=== PATIENT | male | born 1975 | race Two or more races ===

== ENCOUNTER 2019-08-10 07:30 | Inpatient (IN) | payer OTHER ==
[~2019-08-10] VITALS: Ht 172.7 cm; Wt 85.7 kg
[~2019-08-10 07:30] MED LIST: NABUMETONE750 MG PO
[2019-08-17] MEDS ORDERED: CEFADROXIL500 MG PO (15:51)
[2019-08-17] MEDS ORDERED: PERCOCET 5-3251 EACH PO (15:51)
[2019-08-17] MEDS ORDERED: ELIQUIS2.5 MG PO (15:51)
== END 2019-08-17 17:59 | disposition home or self-care (01) | DRG 470 ==
LOC: SURH 08-15 06:30 → O/R 08-15 06:30 → SURH 08-15 17:14 → O/R 08-15 17:30 → SURH 08-17 17:59
PROVIDERS: ADMIT Orthopaedic Surgery; ATTEND Orthopaedic Surgery
PROC: 0QU407Z Supplement Right Acetabulum with Autologous Tissue Substitute, Open Approach (ICD-10-PCS; 2019-08-15)
PROC: 0SR90J9 Replacement of Right Hip Joint with Synthetic Substitute, Cemented, Open Approach (ICD-10-PCS; principal; 2019-08-15 17:30)
DX: M16.51 Unilateral post-traumatic osteoarthritis, right hip (principal); D62 Acute posthemorrhagic anemia

== ENCOUNTER 2021-03-16 10:58 | Emergency (ER) | payer OTHER ==
[~2021-03-16] VITALS: Ht 172.7 cm; Wt 81.6 kg
[~2021-03-16 10:58] MED LIST changes: +CEFADROXIL500 MG PO; +ELIQUIS2.5 MG PO; +PERCOCET 5-3251 EACH PO
== END 2021-03-16 14:05 | disposition home or self-care (01) ==
LOC: ER 10:58
DX: B34.9 Viral infection, unspecified (principal); R07.89 Other chest pain; R31.9 Hematuria, unspecified; Z11.52 Encounter for screening for COVID-19